=== PATIENT | male | born 1955 | race Caucasian/White ===

== ENCOUNTER 2022-10-31 13:00 | Outpatient (OUT) | payer MEDICARE, SELFPAY | END 2022-10-31 13:01 | disposition home or self-care (01) | LOC: PST 11-17 17:49 | PROVIDERS: PCP Family Medicine; Visit Provider Surgery | DX: Z01.818 Encounter for other preprocedural examination (principal); Z12.11 Encounter for screening for malignant neoplasm of colon ==

== ENCOUNTER 2022-11-08 08:31 | Day surgery (SDC) | payer MEDICARE, SELFPAY ==
[2022-11-08 08:48] VITALS: BP 138/72; PULSE 94; RESP 18; TEMP 36.2; O2SAT 97; BMI 26.9
[2022-11-08 08:56] LABS: Glucometer 139 mg/dL (74-106)
[2022-11-08] MEDS: LACTATED RINGER'S SOLUTION 1,000 ML 50 ML IV (09:15)
[2022-11-08 10:35] VITALS: BP 110/74; PULSE 73; RESP 18; TEMP 36.2; O2SAT 98
[2022-11-08 10:50] VITALS: BP 115/76; PULSE 77; RESP 18; O2SAT 95
[2022-11-08 11:14] VITALS: BP 125/78; PULSE 78; RESP 16; O2SAT 95
--- NOTE | 2022-11-08 11:17 | PM.GSPRC ---
Indications for Procedure: This patient is a 67-year-old male who presents for screening colonoscopy. The risks benefits options and potential complications of the procedure were discussed in detail with the patient and they agreed to proceed and consent was signed. Pre-op diagnosis: colon cancer screening Post-op diagnosis: other (normal exam) Procedure: colonoscopy Anesthesia: MAC Surgeon: Se Cuba Procedure Summary: The patient was brought to the endoscopy suite and placed in the left lateral decubitus position.? Under MAC the fiberoptic colonoscope was introduced into the rectum. This was gradually advanced through the colon to the cecum. The cecal landmarks were identified. The bowel prep was marginal making visualization of potentially small polyps quite difficult. Gradual withdrawal of the colonoscope was then undertaken. No vascular polypoid or mucosal lesions were noted throughout the entire length of the colon. The anal rectal canal was unremarkable. The colon was decompressed. Digital rectal exam was unremarkable. The procedure was ended and the patient was transferred to the recovery area in stable condition. Recommended follow-up colonoscopy in ten years. Estimated blood loss (mL): 0 Specimens: none Complications: No
== END 2022-11-08 11:15 | disposition home or self-care (01) ==
PROVIDERS: PCP Family Medicine; Visit Provider Surgery
PROC: (CPT G0121; principal; 2022-11-08 09:40)
DX: Z12.11 Encounter for screening for malignant neoplasm of colon (principal); Z79.82 Long term (current) use of aspirin; Z79.899 Other long term (current) drug therapy; Z79.84 Long term (current) use of oral hypoglycemic drugs; Z79.4 Long term (current) use of insulin; E11.22 Type 2 diabetes mellitus with diabetic chronic kidney disease; N18.9 Chronic kidney disease, unspecified; M48.061 Spinal stenosis, lumbar region without neurogenic claudication; E11.51 Type 2 diabetes mellitus with diabetic peripheral angiopathy without gangrene; Z98.1 Arthrodesis status; Z85.828 Personal history of other malignant neoplasm of skin
CPT/HCPCS: G0121; 36415; 82948; J2704

== ENCOUNTER 2023-01-19 08:37 | Outpatient (OUT) | payer MEDICARE, SELFPAY ==
[2023-01-19 09:22] LABS: Basophils Absolute Auto 0.1 10^3/uL (0.0-0.1); Basophils Percent Auto 0.6 % (0.2-2.0); Eosinophils Absolute Auto 0.1 10^3/uL (0.0-0.7); Eosinophils Percent Auto 1.4 % (0.9-7.0); Hematocrit 44.1 % (42.0-54.0); Hemoglobin 14.7 g/dL (14.0-18.0); Immature Granulocytes Abs Auto 0.02 10^3/uL (0.00-0.03); Immature Granulocytes Pct Auto 0.2 % (0.0-0.5); Lymphocytes Absolute Auto 2.6 10^3/uL (1.2-3.8); Lymphocytes Percent Auto 32.7 % (20.5-60.0); Mean Corpuscular HGB Conc 33.3 g/dL (29.9-35.2); Mean Corpuscular Hemoglobin 30.2 pg (25.9-34.0); Mean Corpuscular Volume 90.7 fL (80.0-94.0); Mean Platelet Volume 9.9 fL (9.5-13.5); Monocytes Absolute Auto 0.6 10^3/uL (0.3-0.8); Monocytes Percent Auto 7.2 % (1.7-12.0); Neutrophils Absolute Auto 4.6 10^3/uL (1.4-6.5); Neutrophils Percent Auto 57.9 % (43.0-75.0); Platelet Count 219 10^3/uL (150-450); Red Blood Count 4.86 10^6/uL (4.70-6.10); Red Cell Distribution Width 13.3 % (11.0-15.0)
[2023-01-19 09:27] LABS: Microalbumin Urine Random <1.3 mg/dL (<=30.0)
[2023-01-19 10:10] LABS: Alanine Aminotransferase 25 U/L (16-63); Albumin Globulin Ratio 1.2; Albumin Level 3.8 g/dL (3.4-5.0); Alkaline Phosphatase 104 U/L (46-116); Anion Gap 12.1; Aspartate Amino Transferase 15 U/L (15-37); Bilirubin Total 0.4 mg/dL (0.2-1.0); Calcium 9.1 mg/dL (8.5-10.1); Carbon Dioxide 29.6 mmol/L (21.0-32.0); Chloride 101 mmol/L (98-107); Chol HDL Ratio 2.8; Cholesterol 154 mg/dL (<=200); Estimated GFR (African America >60 (>=60); Estimated GFR (Non-African Ame >60 (>=60); Globulin 3.2 g/dL; Glucose 151 mg/dL (74-106); HDL Cholesterol 56 mg/dL (40-60); Potassium 3.7 mmol/L (3.5-5.1); Sodium 139 mmol/L (136-145); Thyroid Stimulating Hormone 1.751 uIU/mL (0.358-3.740); Triglycerides 277 mg/dL (<=150); VLDL CHOLESTEROL 55.4 mg/dL
[2023-01-19 11:35] LABS: Prostate Specific Antigen Dx 0.76 ng/mL (<=4.00)
== END 2023-01-19 08:38 | disposition home or self-care (01) ==
LOC: LAB 08:39
PROVIDERS: PCP Family Medicine; Visit Provider Family Medicine
DX: Z00.00 Encounter for general adult medical examination without abnormal findings (principal); E11.40 Type 2 diabetes mellitus with diabetic neuropathy, unspecified; Z79.4 Long term (current) use of insulin; Z12.5 Encounter for screening for malignant neoplasm of prostate
CPT/HCPCS: 36415; 80053; 80061; 82043; 84153; 84443; 85025

== ENCOUNTER 2024-04-09 07:42 | Outpatient (OUT) | payer MEDICARE, SELFPAY ==
[2024-04-09 08:12] LABS: Basophils Absolute Auto 0.1 10^3/uL (0.0-0.1); Basophils Percent Auto 0.6 % (0.2-2.0); Eosinophils Absolute Auto 0.3 10^3/uL (0.0-0.7); Eosinophils Percent Auto 3.2 % (0.9-7.0); Hematocrit 43.8 % (42.0-54.0); Immature Granulocytes Abs Auto 0.02 10^3/uL (0.00-0.03); Immature Granulocytes Pct Auto 0.2 % (0.0-0.5); Lymphocytes Absolute Auto 1.5 10^3/uL (1.2-3.8); Mean Corpuscular HGB Conc 34.2 g/dL (29.9-35.2); Mean Corpuscular Hemoglobin 30.8 pg (25.9-34.0); Mean Corpuscular Volume 89.9 fL (80.0-94.0); Mean Platelet Volume 9.7 fL (9.5-13.5); Monocytes Absolute Auto 0.6 10^3/uL (0.3-0.8); Monocytes Percent Auto 7.8 % (1.7-12.0); Neutrophils Absolute Auto 5.7 10^3/uL (1.4-6.5); Neutrophils Percent Auto 70.2 % (43.0-75.0); Platelet Count 205 10^3/uL (150-450); Red Blood Count 4.87 10^6/uL (4.70-6.10); Red Cell Distribution Width 12.9 % (11.0-15.0); White Blood Count 8.2 10^3/uL (4.0-11.0)
[2024-04-09 08:27] LABS: Microalbumin Urine Random <1.3 mg/dL (<=30.0)
[2024-04-09 08:30] LABS: Alanine Aminotransferase 24 U/L (16-63); Albumin Globulin Ratio 1.1; Albumin Level 3.5 g/dL (3.4-5.0); Alkaline Phosphatase 157 U/L (46-116); Anion Gap 10.9; Aspartate Amino Transferase 14 U/L (15-37); Bilirubin Direct 0.1 mg/dL (0.0-0.2); Bilirubin Total 0.5 mg/dL (0.2-1.0); Carbon Dioxide 29.4 mmol/L (21.0-32.0); Chloride 104 mmol/L (98-107); Chol HDL Ratio 2.4; Cholesterol 133 mg/dL (<=200); Estimated GFR (African America >60 (>=60 mL/min/1.73m^2); Estimated GFR (Non-African Ame >60 (>=60 mL/min/1.73m^2); Globulin 3.1 g/dL; Glucose 165 mg/dL (74-106); HDL Cholesterol 55 mg/dL (40-60); LDL Cholesterol Calculated 55.8 mg/dL; Potassium 4.3 mmol/L (3.5-5.1); Sodium 140 mmol/L (136-145); Total Protein 6.6 g/dL (6.4-8.2); Triglycerides 111 mg/dL (<=150); VLDL CHOLESTEROL 22.2 mg/dL
[2024-04-09 08:56] LABS: Prostate Specific Antigen Scrn 1.14 ng/mL (<=4.00)
== END 2024-04-09 07:43 | disposition home or self-care (01) ==
LOC: LAB 07:45
PROVIDERS: PCP Family Medicine; Visit Provider Family Medicine
DX: E78.5 Hyperlipidemia, unspecified (principal); I10 Essential (primary) hypertension; E11.65 Type 2 diabetes mellitus with hyperglycemia; Z79.4 Long term (current) use of insulin; Z79.899 Other long term (current) drug therapy; Z12.5 Encounter for screening for malignant neoplasm of prostate
CPT/HCPCS: 36415; 80048; 80061; 80076; 82043; 85025; G0103

== ENCOUNTER 2024-09-20 12:41 | Outpatient (OUT) | payer MEDICARE, SELFPAY ==
--- OUTSIDE RECORDS SUMMARY | 2023-06-26 09:30 | XMS_ITS ---
Author Organization [facility] Address [address] [place] [id number] Care Team Providers Care Winder Helper Name Role Phone Yin Titus [facility] [phone] REASON FOR VISIT CONCRETE CURER Comp Exam Encounters Encounter Location Date Provider Diagnosis [facility] [address] [place], [place] [id number] 06/26/2023 Yin Titus Plan Of Treatment No Information Progress Notes * CHARBELOrtiz PDOB:1955 (69 yo M)Acc No.[id number]:06/26/2023 Patient: Ortiz ZARATE Provider: Elia Titus DDS :1955 A ge:68 Y S ex:Male Date:06/26/2023 Address:[address] [place], [place] [id number] Subjective: * Chief Complaints: * 1 . CONCRETE CURER Comp Exam. * Medical History: Objective: * Vitals: Assessment: Plan: * Treatment: * Billing Information: * Visit Code: * Procedure Codes: * Electronic signature of Michelle Titus DDS on 09/20/2024 at 11:24 AM EDT Sign off status: Pending * Provider: Elia Titus DDS Date: 06/26/2023 Generated for Deepthi keller/Ariella/Jelaniitting on: 09/20/2024 11:24 AM EDT
--- OUTSIDE RECORDS SUMMARY | 2024-09-20 11:30 | XMS_ITS | Encounter Summary ---
Author Organization [facility] Address [address] [facility] [place] [address] Care Team Providers Care Fruit Trimmer Name Role Phone Bandar Muñiz MD Primary Care Provider [phone] Reason for Referral * (Routine) - Authorized Specialty Diagnoses / Procedures Referred By Contac t Referred To Contact Radiology Diagnoses Right leg pain Right leg swelling Procedures Vascular US lower extremity venous duplex right Bandar Muñiz MD [address] [place] [address] Phone: tel: fax: Referral ID Status Reason Start Date Expiration Date V isits Requested Visits Authorized [id number] Authorized 09/20/2024 03/19/2025 1 1 * Imaging (Routine) - Authorized Specialty Diagnoses / Procedures Referred By Contac t Referred To Contact Radiology Diagnoses Right leg pain Right leg swelling Peripheral vascular disease, unspecified (CMS/HCC) Procedures Vascular US lower extremity arterial duplex right with Doppler Bandar Muñiz MD [address] [place] [address] Phone: tel: fax: Referral ID Status Reason Start Date Expiration Date Visits Requested Visits Authorized [id number] Authorized Perform Procedure 09/20/2024 03/19/2025 1 1 Reason for Visit * Reason Comments Follow-up Right leg pain Encounter Details Date Type Department Care Team (Late st Contact Info) Description 09/20/2024 11:30 AM EDT Office Visit [facility] [address] [place] [id number] Bandar Muñiz MD [address] [place] [address] Right leg pain (Primary Dx); Right leg swelling; Peripheral vascular disease, unspecified (CMS/HCC) Social History Tobacco Use Types Packs/Day Years Used Date Smoking Tobacco: Former Cigarettes Smokeless Tobacco: Never Comments:Quit 5-10 years ago . Alcohol Use Standard Drinks/Week Comments Yes 0 (1 standard drink = 0.6 oz pure alcohol) Alcohol >6 drinks on occasion/less than monthly. Caffeine: 1-2 cups/day Humiliation, Afraid, Rape, and Kick questionnair e Answer Date Recorded Within the last year, have y ou been afraid of your partner or ex-partner? No 10/24/2022 Within the last year, have y ou been humiliated or emotionally abused in other ways by your partner or ex-partner? No Within the last year, have y ou been kicked, hit, slapped, or otherwise physically hurt by your partner or ex-partner? No 10/24/2022 Within the last year, have y ou been raped or forced to have any kind of sexual activity by your partner or ex-partner? No 10/24/2022 Social Connection and Isolation Panel [NHANES] A nswer Date Recorded In a typical week, how many times do you talk on the phone with family, friends, or neighbors? Three times a week 10/24/2022 How often do you get togethe r with friends or relatives? Once a week 10/24/2022 How often do you attend chur ch or rastafari services? Never 10/24/2022 Do you belong to any clubs o r organizations such as advent groups, unions, fraternal or athletic groups, or school groups? Yes 10/24/2022 How often do you attend meet ings of the clubs or organizations you belong to? Never 10/24/2022 Are you , , di vorced, , never , or living with a partner? 10/24/2022 AUDIT-C Answer Date Recorded Q1: How often do you have a drink containing alc ohol? Monthly or less 04/18/2024 Q2: How many drinks containi ng alcohol do you have on a typical day when you are drinking? 1 or 2 04/18/2024 Q3: How often do you have si x or more drinks on one occasion? Never 04/18/2024 Overall Financial Resource Strain (CARDIA) Answe r Date Recorded How hard is it for you to pa y for the very basics like food, housing, medical care, and heating? Not very hard 10/24/2022 PHQ-2 Answer Date Recorded Patient Health Questionnaire-2 Score 0 07/15/2024 Hunger Vital Sign Answer Date Recorded Within the past 12 months, y ou worried that your food would run out before you got the money to buy more. Never true 10/25/19 23 Within the past 12 months, t he food you bought just didn't last and you didn't have money to get more. Never true 10/24/2022 PRAPARE - Transportation Answer Date Re corded In the past 12 months, has l ack of transportation kept you from medical appointments or from getting medications? No 09/30 In the past 12 months, has l ack of transportation kept you from meetings, work, or from getting things needed for daily living? No 10/24/2022 Housing Stability Vital Sign Answer Emil e Recorded In the last 12 months, was t here a time when you were not able to pay the mortgage or rent on time? No 10/24/2022 In the last 12 months, how many places have you lived? 1 10/24/2022 In the last 12 months, was t here a time when you did not have a steady place to sleep or slept in a fci (including now)? No 10/24/2022 Sex and Gender Information Value Date Recorded Sex Assigned at Not on file Legal Sex Male 8:22 PM EDT Gender Identity Male 09/02/2023 10:37 AM EDT Sexual Orientation Not on file documented as of this encounter Last Filed Vital Signs Vital Sign Reading Time Taken Comments Blood Pressure 124/66 09/20/2024 11:39 AM EDT Pulse 89 09/20/2024 11:39 AM EDT Temperature 36.4 C (97.5 F) 09/20/2024 11:39 AM EDT Respiratory Rate 22 09/20/2024 11:39 AM EDT Oxygen Saturation 98% 09/20/2024 11:39 AM EDT Inhaled Oxygen Concentration - - Weight 87.1 kg (192 lb) 09/20/2024 11:39 AM EDT Height 177.8 cm (5' 10 ) 09/20/2024 11:39 AM EDT Body Mass Index 27.55 09/20/2024 11:39 AM EDT documented in this encounter Progress Notes * Bandar Muñiz MD - 09/20/2024 12:29 PM EDTAssociated Problem(s): Right leg pain Severe pain and redness of unknown etiology. Check US of veins to assess for DVT and US artery to assess for occlusion and ischemia. Check uric acid. Contacted radiology at [facility] and will send patient over for stat imaging. * Bandar Muñiz MD - 09/20/2024 12:28 PM EDTAssociated Problem(s): Peripheral vascular disease, unspecified (CMS/HCC) History of PVD and increased pain and redness. Check arterial doppler and need to resume aspirin daily. * Bandar Muñiz MD - 09/20/2024 11:30 AM EDT Images from the original note were not included. Subjective Patient ID: Cristian Barger is a 69 y.o. male who presents for Follow-up (Right leg pain). C/o right leg pain and redness for 2 weeks. Initially outside and doing yard work and shoveling. Next day severe pain in right leg. Pain in calf and down into foot. Noticed veins bulging in leg. Footand toes red and painful. Pain has persisted since. Severe pain with walking and hard to stand. Severe pain just to walk to mailbox and needs to stop. No swelling in leg. Skin red but not warm to touch. History of PAD and prior angioplasty on left leg around 2019. No longer following with vascular and not on aspirin or plavix. Review of Systems Constitutional: Negative for fatigue. Respiratory: Negative for cough, shortness of breath and wheezing. Cardiovascular: Negative for chest pain and palpitations. Gastrointestinal: Negative for abdominal pain, diarrhea, nausea and vomiting. Genitourinary: Negative for dysuria. Objective Physical Exam Constitutional: General: He is not in acute distress. Appearance: Normal appearance. HENT: Head: Normocephalic. Right Ear: Tympanic membrane and ear canal normal. Left Ear: Tympanic membrane and ear canal normal. Eyes: Extraocular Movements: Extraocular movements intact. Pupils: Pupils are equal, round, and reactive to light. Cardiovascular: Rate and Rhythm: Normal rate and regular rhythm. Heart sounds: No murmur heard. No friction rub. No gallop. Pulmonary: Breath sounds: Normal breath sounds. No wheezing, rhonchi or rales. Abdominal: General: Bowel sounds are normal. There is no distension. Palpations: Abdomen is soft. Tenderness: There is no abdominal tenderness. There is no guarding or rebound. Musculoskeletal: Left lower leg: No edema. Neurological: Mental Status: He is alert. Assessment/Plan Problem List Items Addressed This Visit Peripheral vascular disease, unspecified (CMS/HCC) History of PVD and increased pain and redness. Check arterial doppler and need to resume aspirin daily. Relevant Orders Vascular US lower extremity arterial duplex right with Doppler Right leg pain - Primary Severe pain and redness of unknown etiology. Check US of veins to assess for DVT and US artery to assess for occlusion and ischemia. Check uric acid. Contacted radiology at [facility] and will send patient over for stat imaging. Relevant Orders Vascular US lower extremity arterial duplex right with Doppler Vascular US lower extremity venous duplex right Uric acid Right leg swelling Relevant Orders Vascular US lower extremity arterial duplex right with Doppler Vascular US lower extremity venous duplex right Uric acid documented in this encounter Plan of Treatment Upcoming Encounters Date Type Department Care Team (Late st Contact Info) Description 09/24/2024 10:30 AM EDT Office Visit [facility] [address] [place] [address] Janina Samaniego MD [address] [place] [address] 10/15/2024 9:30 AM EDT Office Visit [facility] [address] [place] [address] Rukhsana Snow DO [address] [place] [address] 12/05/2024 10:00 AM EDT Office Visit [facility] [address] [place] [address] Bandar Muñiz MD [address] [place] [address] Scheduled Orders Name Type Priority Associated Diagnoses Orde r Schedule Vascular US lower extremity arterial duplex right with Doppler Vascular Ultrasound Routine Right leg pain Right leg swelling Peripheral vascular disease, unspecified (CMS/HCC) Expected: 09/20/2024 (Approximate), Expires: 09/20/2026 Vascular US lower extremity venous duplex right Imaging Routine Right leg pain Right leg swelling Expected: 09/20/2024, Expires: 09/20/2025 Uric acid Lab Routine Right leg pain Right leg swelling Expected: 09/20/2024 (Approximate), Expires: 09/20/2025 documented as of this encounter Visit Diagnoses Diagnosis Right leg pain- Primary Pain in soft tissues of limb Right leg swelling Peripheral vascular disease, unspecified (CMS/HCC) Peripheral vascular disease, unspecified documented in this encounter Additional Health Concerns Assessment Noted Time PHQ-9 Depression Total Score: 0 06/06/19 25 10:00 AM EST documented as of this encounter Care Teams Fruit Trimmer Relationship Specialty Start Date End Date Bandar Muñiz MD [address] [place] [address] PCP - General Family Medicine 05/29/23 documented as of this encounter
--- OUTSIDE RECORDS SUMMARY | 2024-09-20 11:33 | XMS_ITS ---
Author Name Auto Generated Organization [facility] Care Team Providers Care Shot Fireman Name Role Phone ZOIE RASHID Attending Unavailable DONAVAN PALACIO Attending Unavailable PHI FIGUEROA Attending Unavailable SAUL SNIDER Attending Unavailable SAUL SNIDER Attending Unavailable DONAVAN PALACIO Attending Unavailable PHI FIGUEROA Attending Unavailable DONAVAN PALACIO Attending Unavailable PHI FIGUEROA Attending Unavailable PHI FIGUEROA Attending Unavailable SAUL SNIDER Attending Unavailable DONAVAN PALACIO Referring Unavailable CHACHA DUNCAN Attending Unavailable PHI FIGUEROA Attending Unavailable PROBLEMS No Problem Records Found PROCEDURES No Procedure Records Found RESULTS No Result Records Found ALLERGIES No Allergies Records Found ENCOUNTERS ADMIT/DISCHARGE ACCOUNT NUMBER ADMITTING ENCOUNTER CLASS LOCATION SOURCE 09/20/2024/ 5 [id number] Ambulatory Building:[facility] 07/15/2024/ 5 [id number] Ambulatory Building[facility] 06/06/2024/ 5 [id number] Ambulatory Building:[facility] 05/22/2024/ 5 [id number] Ambulatory Building:[facility] 05/08/2024/ 5 [id number] Ambulatory Building:[facility] 04/19/2024/ 4 [id number] Ambulatory Building:[facility] 04/18/2024/ 4 [id number] Ambulatory Building:[facility] 04/16/2024/ 4 [id number] Ambulatory Building:[facility] 04/03/2024/ 4 [id number] Ambulatory Building:[facility] 03/06/2024/ 4 [id number] Ambulatory Building:[facility] 01/26/2024/ 4 [id number] Ambulatory Building:[facility] 12/29/2023/ 4 [id number] Ambulatory Building:[facility] 10/05/2023/ 4 [id number] Ambulatory Building:[facility] PAYERS ENCOUNTER GUARANTOR PAYER SUBSCRIBER SOURCE 09/20/2024 JAMILA FERNANDEZ: [address] [address]Szr: (HP) Primary Insurance:AETNA MEDICARE ADVANTAGEPolicy Number: [id number] Date:2022-08-29 JAMILA VILAB: [id number] [address] [address] [facility] EPIC 07/15/2024 JAMILA VILAB: [address] [address]Rrz: (HP) Primary Insurance:AETNA MEDICARE ADVANTAGEPolicy Number: [id number] Date:2022-08-29 JAMILA VILAB: [id number] [address] [address] [facility] EPIC 06/06/2024 JAMILA VILAB: [address] [address]Nqa: (HP) Primary Insurance:AETNA MEDICARE ADVANTAGEPolicy Number: [id number] Date:2022-08-29 JAMILA VILAB: [id number] [address] [address] [facility] EPIC 05/22/2024 JAMILA VILAB: [address] [address]Sqx: (HP) Primary Insurance:AETNA MEDICARE ADVANTAGEPolicy Number: [id number] Date:2022-08-29 JAMILA NOLENDOB: [id number] [address] [place] [address] [facility] EPIC 05/08/2024 JAMILA VILAB: [address] [address]Kix: (HP) Primary Insurance:AETNA MEDICARE ADVANTAGEPolicy Number: [id number] Date:2022-08-29 JAMILA NOLENDOB: [id number] [address] [place] [address] [facility] EPIC 04/19/2024 JAMILA NOLENDOB: [address] [place] [address]Gik: (HP) Primary Insurance:AETNA MEDICARE ADVANTAGEPolicy Number: [id number] Date:2022-08-29 JAMILA NOLENDOB: [id number] [address] [place] [address] [facility] EPIC 04/18/2024 JAMILA Ivy RAYDOB: [address] [place] [address]Gtj: (HP) Primary Insurance:AETNA MEDICARE ADVANTAGEPolicy Number: [id number] Date:2022-08-29 JAMILA NOLENDOB: [id number] [address] [place] [address] [facility] EPIC 04/16/2024 JAMILA NOLENDOB: [address] [place] [address]Fcf: (HP) Primary Insurance:AETNA MEDICARE ADVANTAGEPolicy Number: [id number] Date:2022-08-29 JAMILA NOLENDOB: [id number] [address] [address] [facility] EPIC 04/03/2024 JAMILA Ivy RAYDOB: [address] [place] [address]Ien: (HP) Primary Insurance:AETNA MEDICARE ADVANTAGEPolicy Number: [id number] Date:2022-08-29 JAMILA NOLENDOB: [id number] [address] [place] [address] [facility] EPIC 03/06/2024 JAMILA NOLENDOB: [address] [address]Skz: (HP) Primary Insurance:AETNA MEDICARE ADVANTAGEPolicy Number: [id number] Date:2022-08-29 JAMILA VILAB: [id number] [address] [address] [facility] EPIC 01/26/2024 JAMILA NOLENB: [address] [address]Zio: (HP) Primary Insurance:AETNA MEDICARE ADVANTAGEPolicy Number: [id number] Date:2022-08-29 JAMILA NOLENB: [id number] [address] [address] [facility] EPIC 12/29/2023 JAMILA NOLENB: [address] [address]Dhp: (HP) Primary Insurance:AETNA MEDICARE ADVANTAGEPolicy Number: [id number] Date:2022-08-29 JAMILA NOLENB: [id number] [address] [address] [facility] EPIC 10/05/2023 JAMILA NOLENB: [address] [address]Vaa: (HP) Primary Insurance:AETNA MEDICARE ADVANTAGEPolicy Number: [id number] Date:2022-08-29 JAMILA Cata TAMANNAB: [id number] [address] [address] [facility] EPIC
--- OUTSIDE RECORDS SUMMARY | 2024-09-20 12:45 | XMS_ITS | Clinical Summary ---
Author Organization [facility] Address [address] [place] [address] Phone Care Team Providers Care Draw Machine Operator Name Role Phone Unavailable Primary Care Provider Unavailabl e Social History Tobacco Use Types Packs/Day Years Used Date Smoking Tobacco: Never Assessed Sex and Gender Information Value Date Recorded Sex Assigned at Not on file Legal Sex Male 7:34 PM EST Gender Identity Not on file Sexual Orientation Not on file Plan of Treatment Not on file
--- OUTSIDE RECORDS SUMMARY | 2024-09-20 12:46 | XMS_ITS | Clinical Summary ---
Author Organization [facility] Healthcare Address [address] [place] [address] Care Team Providers Care Cook Chef Name Role Phone Bandar Muñiz MD Primary Care Provider Allergies Active Allergy Reactions Criticality Noted Date Comments Penicillin G 10/25/2022 Medications Lancets (OneTouch Delica Plus Zataam17C) misc use 1 LANCET to TEST FASTING BLOOD SUGAR three times a day 023 Active OneTouch Verio test strip use 1 TEST STRIP to TEST FASTING BLOOD SUGAR twice a day 023 Active Continuous Blood Gluc Paid Search Marketing Analyst (FreeStyle Daisy 3 Sugar Run) deviceIndications: Type 2 diabetes mellitus with diabetic neuropathy, with long-term current use of insulin (CMS/HCC) 1 Device See administration instructions 1 each 024 Active Additional Information Patient not taking.Reported on 07/15/2024 Continuous Blood Gluc Sensor (FreeStyle Daisy 3 Sensor) miscIndications:Ty pe 2 diabetes mellitus with diabetic neuropathy, with long-term current use of insulin (CMS/HCC) Inject 1 Device under the skin every 14 (fourteen) days 6 each 3 024 Active lisinopril-hydroCH LOROthiazide 20-12.5 MG tabletIndications: Essential hypertension, benign (CMS/HCC) Take 1 tablet by mouth Daily 100 tablet 3 024 Active atorvastatin (Lipitor) 40 MG tabletIndications: Dyslipidemia (CMS/HCC) TAKE 1 TABLET BY MOUTH EVERYDAY AT BEDTIME 90 tablet 3 024 Active metFORMIN XR (Glucophage-XR) 500 MG 24 hr tabletIndications: Type 2 diabetes mellitus with diabetic neuropathy, with long-term current use of insulin ([facility]) TAKE 2 TABLETS BY MOUTH IN THE MORNING AND 1 TABLET IN THE EVENING 270 tablet 3 Active dapagliflozin (Farxiga) 10 MGIndications:Type 2 diabetes mellitus with Charcot's joint arthropathy (CMS/HCC) TAKE 1 TABLET BY MOUTH EVERY DAY 30 tablet 3 Active insulin pen needle (BD Pen Needle Aditi 2nd Gen) 32G x 4 mm miscIndications:Ty pe 2 diabetes mellitus with 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, with long-term current use of insulin ([facility]) Use as instructed bid injections 200 each 3 025 07/15 Active insulin lispro protamine-insulin lispro (HumaLOG MIX 50/50 KWIKPEN) (50-50) 100 UNIT/ML injectionIndicatio ns:Type 2 diabetes mellitus with Charcot's joint arthropathy (CMS/[facility]) 22 units breakfast and dinner 15 mL 3 Active gabapentin (Neurontin) 600 MG tabletIndications: Type 2 diabetes mellitus with diabetic neuropathy, without long-term current use of insulin ([facility]) TAKE 1 TABLET BY MOUTH EVERY MORNING, EVERY EVENING, AND BEFORE BEDTIME 90 tablet 2 Active gabapentin (Neurontin) 600 MG tabletIndications: Type 2 diabetes mellitus with diabetic neuropathy, without long-term current use of insulin ([facility]/HCC) Take 1 tablet (600 mg) by mouth in the morning and 1 tablet (600 mg) in the evening and 1 tablet (600 mg) before bedtime. 90 tablet 2 025 09/19 Discontinued Active Problems Problem Noted Date Diagnosed Date Right leg pain 09/20/2024 Assessment & Plan (09/20/2024 12:29 PM EDT): Severe pain and redness of unknown etiology. Check US of veins to assess for DVT and US artery to assess for occlusion and ischemia. Check uric acid. Contacted radiology at [facility] and will send patient over for stat imaging. Right leg swelling 09/20/2024 Medicare annual wellness visit, subsequent 06/06 Assessment & Plan (06/06/2024 10:48 AM EST): Reviewed labs. Discussed proper diet and regular aerobic exercise. Need aerobic exercise 5-6 days a week for 30 minutes at a time. Smaller portions and limit total calories. Colonoscopy every 10 years. Tetanus every 10 years. Advised not to smoke. Discussed daily Aspirin therapy. 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 If abnormal could try injection. Encounter for long-term current use of medicatio n 03/06/2024 Screening PSA (prostate specific antigen) 2023 Essential hypertension, benign 09/18/2023 Assessment & Plan (03/06/2024 9:58 AM EST): BP controlled and monitor PRN. Assessment & Plan (09/18/2023 11:05 AM EDT): BP controlled and monitor PRN. Dyslipidemia 09/18/2023 Leg edema 09/18/2023 Assessment & Plan (03/06/2024 9:59 AM EST): Edema stable and continue medication. Elevate legs PRN. Assessment & Plan (09/18/2023 11:05 AM EDT): Edema stable and continue medication. Elevate legs PRN. Left foot pain 09/18/2023 Peripheral vascular disease, unspecified 024 Assessment & Plan (09/20/2024 12:28 PM EDT): History of PVD and increased pain and redness. Check arterial doppler and need to resume aspirin daily. Assessment & Plan (03/06/2024 10:00 AM EST): Monitor. Primary osteoarthritis of left elbow 09/18/2023 Superficial phlebitis and th rombophlebitis of left lower extremity 09/18/2023 Type 2 diabetes mellitus wit h hyperglycemia, with long-term current use of insulin 09/18/2023 Assessment & Plan (03/06/2024 9:59 AM EST): BS controlled and follow with endo. History of nonmelanoma skin cancer 10/25/2022 Melanocytic nevi of trunk 10/25/2022 Primary osteoarthritis of right hip 10/25/2022 Degenerative lumbar spinal stenosis 10/25/2022 Assessment & Plan (03/06/2024 9:58 AM EST): Pain stable and use OTC PRN. Increase activity and walk regularly. Assessment & Plan (09/18/2023 11:05 AM EDT): Pain stable and use OTC PRN. Increase activity and walk regularly. Type 2 diabetes mellitus with Charcot's joint ar thropathy 10/25/2022 Assessment & Plan (07/15/2024 12:58 PM EDT): During the appointment today all pertinent labs, imaging, health maintenance, and glucose readings were reviewed. Encouraged to check blood glucose throughout the day with some fasting and some PP readings. They are to bring their glucose meter/cgm in to all appointments. All of the patients questions, treatment options, and current care plan and goals were discussed. A copy of this along with pertinent instructions were given to the patient at the end of the appointment. The patient voices understanding of all of this and is to call in between appointments if they have any problems or questions. Ortiz Barger blood sugars are worsening. , The patient is wearing their cgm on a daily basis and making decisions in regards to adjusting insulin daily as well for at least the last 60 days , Discussed dietary changes at length. Encouraged to limit simple carbs and focus more on healthy protein/fat with all meals and snacks. They should also avoid any sugary drinks. , Instructed on the importance of taking insulin before eating. If it has been more than 30-45 min since eating they should not give the meal dose but should just give a correction insulin dose. , Instructions given today include: Insulin instructions and Dietary education. If he is going to eat between insulin shots it needs to mainly be on protein. Will increase insulin a little. Assessment & Plan (04/18/2024 12:07 PM EST): During the appointment today all pertinent labs, imaging, health maintenance, and glucose readings were reviewed. Encouraged to check blood glucose throughout the day with some fasting and some PP readings. They are to bring their glucose meter/cgm in to all appointments. All of the patients questions, treatment options, and current care plan and goals were discussed. A copy of this along with pertinent instructions were given to the patient at the end of the appointment. The patient voices understanding of all of this and is to call in between appointments if they have any problems or questions. Ortiz Barger blood sugars are worsening. , The patient is wearing their cgm on a daily basis and making decisions in regards to adjusting insulin daily as well for at least the last 60 days , Instructed on the importance of taking insulin before eating. If it has been more than 30-45 min since eating they should not give the meal dose but should just give a correction insulin dose. , Instructions given today include: Insulin instructions and Dietary education. Will stop lantus and use premixed insulin. I don't feel that his pancreas is making enough insulin. He is to stay on a fairly fixed schedule for breakfast and dinner with using the premixed insulin. Assessment & Plan (01/02/2024 12:27 PM EDT): During the appointment today all pertinent labs, imaging, health maintenance, and glucose readings were reviewed. Encouraged to check blood glucose throughout the day with some fasting and some PP readings. They are to bring their glucose meter/cgm in to all appointments. All of the patients questions, treatment options, and current care plan and goals were discussed. A copy of this along with pertinent instructions were given to the patient at the end of the appointment. The patient voices understanding of all of this and is to call in between appointments if they have any problems or questions. Ortiz Barger blood sugars are worsening. , The patient is wearing their cgm on a daily basis and making decisions in regards to adjusting insulin daily as well for at least the last 60 days , Discussed dietary changes at length. Encouraged to limit simple carbs and focus more on healthy protein/fat with all meals and snacks. They should also avoid any sugary drinks. , Instructions given today include: Insulin instructions and Dietary education. I don't think he makes enough insulin for his meals. He wishes to still hold off on prandial insulin. Will stay with current therapy. He needs to keep his carbs < 30-40 grams per meal to prevent bg spikes. If he continues to spike, will need to add prandial insulin. Type 2 diabetes mellitus wit h diabetic neuropathy, unspecified 10/25/2022 Assessment & Plan (03/06/2024 9:59 AM EST): Mild pain but tolerable with neurontin and continue. Assessment & Plan (09/18/2023 11:06 AM EDT): Mild pain but tolerable with neurontin and continue. Assessment & Plan (08/29/2023 2:07 PM EDT): During the appointment today all pertinent labs, imaging, health maintenance, and glucose readings were reviewed. Encouraged to check blood glucose throughout the day with some fasting and some PP readings. They are to bring their glucose meter/cgm in to all appointments. All of the patients questions, treatment options, and current care plan and goals were discussed. A copy of this along with pertinent instructions were given to the patient at the end of the appointment. The patient voices understanding of all of this and is to call in between appointments if they have any problems or questions. Ortiz Cata Barger is making improvements and encouraged on this. , Will stay on current medications. , The patient is wearing their cgm on a daily basis and making decisions in regards to adjusting insulin daily as well for at least the last 60 days. He is to pay more attention to when his bg spikes and what he is eating. Make sure he is eating protein with all meals/snacks. Assessment & Plan (05/29/2023 3:21 PM EST): During the appointment today all pertinent labs, imaging, health maintenance, and glucose readings were reviewed. Encouraged to check blood glucose throughout the day with some fasting and some PP readings. They are to bring their glucose meter/cgm in to all appointments. All of the patients questions, treatment options, and current care plan and goals were discussed. A copy of this along with pertinent instructions were given to the patient at the end of the appointment. The patient voices understanding of all of this and is to call in between appointments if they have any problems or questions. Ortiz Barger is struggling to gain control of their diabetes. I am very concerned for diabetes related complications. , Discussed dietary changes at length. Encouraged to limit simple carbs and focus more on healthy protein/fat with all meals and snacks. They should also avoid any sugary drinks. , Instructions given today include: Insulin instructions and Dietary education. He is going to work on improving his diet, limiting eating out, and will put him on a daisy 3 to help with this as well. If this is not helpful will have to add another medication and consider prandial insulin. Assessment & Plan (02/24/2023 11:19 AM EDT): During the appointment today all pertinent labs, imaging, health maintenance, and glucose readings were reviewed. Encouraged to check blood glucose throughout the day with some fasting and some PP readings. They are to bring their glucose meter/cgm in to all appointments. All of the patients questions, treatment options, and current care plan and goals were discussed. A copy of this along with pertinent instructions were given to the patient at the end of the appointment. The patient voices understanding of all of this and is to call in between appointments if they have any problems or questions. Ortiz Barger is struggling to gain control of their diabetes. I am very concerned for diabetes related complications. , Will stay on current medications. , Discussed dietary changes at length. Encouraged to limit simple carbs and focus more on healthy protein/fat with all meals and snacks. They should also avoid any sugary drinks. , Instructions given today include: Dietary education. Will work on improving his diet and checking bg more throughout the day. If numbers are not improving will consider cgm. He is hesitant about the cgm. 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 Ear irrigated with water and cerumen removed with speculum. Canal clear after procedure. Use debrox or drops of baby oil to prevent build up of wax in future. Do not use q-tips inside ear. 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 01/06/2021 02/24/2023 Other acquired deformities of right foot 01/06/2021 03/06/2024 Deformity of right foot 01/06/202109/2023 Ulcer of foot due to type 2 diabetes mellitus 12/30/19 21 09/18/2023 Diabetic neuropathic arthropathy 04/14/2020 02/24/2023 Diabetic peripheral neuropat hy associated with type 2 diabetes mellitus 10/23/2017 02/24/2023 Encounters Date Type Department Care Team Description 09/20/2024 11:30 AM EDT Office Visit [facility] [address] [place] [id number] Bandar Muñiz MD Right leg pain (Primary Dx); Right leg swelling; Peripheral vascular disease, unspecified (CMS/HCC) 09/20/2024 Bamboo flowsheet [facility] [address] [place] [phone] Bandar Muñiz MD 09/19/2024 Refill [facility] [address] [place] [phone] Bandar Muñiz MD Type 2 diabetes mellitus with diabetic neuropathy, without long-term current use of insulin (CMS/[facility]) 09/12/2024 Abstract [facility] [address] [place] [address] Rukhsana Snow DO 09/09/2024 Abstract [facility] [address] [place] [address] Bandar Muñiz MD 07/25/2024 Refill [facility] [address] [place] [phone] Danni Bishop LPN Type 2 diabetes mellitus with Charcot's joint arthropathy ([facility]/HCC) 07/15/2024 10:30 AM EDT Office Visit [facility] [address] [place] [address] Rukhsana Snow, Type 2 diabetes mellitus with Charcot's joint arthropathy ([facility]/HCC); Type 2 diabetes mellitus with diabetic neuropathy, with long-term current use of insulin ([facility]); Type 2 diabetes mellitus with 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, with long-term current use of insulin ([facility]); Type 2 diabetes mellitus with other circulatory complications ([facility]); Type 2 diabetes mellitus with hyperglycemia, with long-term current use of insulin ([facility]) 07/15/2024 Travel from Last 3 Months Immunizations Immunization Administration Dates Next Due Influenza, injectable, quadrivalent, preservativ e free 04/03/2019 Pneumococcal Conjugate PCV 13 02/11/2019 Family History Medical History Relation Name Comments No Known Problems Brother 1 Cancer Brother 2 blood clots Brother 2 Diabetes Father Heart disease Father Hypertension Father Kidney disease Father Breast cancer Mother Diabetes Mother No Known Problems Sister Melanoma Neg Hx Relation Name Status Comments Brother 1 Alive Brother 2 Father Mother Sister Alive Son (2) Alive Social History Tobacco Use Types Packs/Day Years Used Date Smoking Tobacco: Former Cigarettes Smokeless Tobacco: Never Tobacco Cessation:Counseling Given: Not Answered Comments:Quit 5-10 years ago. Alcohol Use Standard Drinks/Week Comments Yes 0 [...] week 10/24/2022 How often do you attend [facility] or [employer] services? Never 10/24/2022 Do you belong to any clubs o r organizations such as sikhism groups, unions, fraternal or athletic groups, or [...] the money to buy more. Never true 06/26/20 23 Within the past 12 months, t [...] place to sleep or slept in a correction (including now)? No 10/24/2022 Sex and Gender Information Value Date Recorded Sex Assigned at Not on file Legal Sex Male 8:22 PM EDT Gender Identity Male 09/02/2023 10:37 AM EDT Sexual Orientation Not on file Last Filed Vital Signs Vital Sign Reading [...] Mass Index 27.55 09/20/2024 11:39 AM EDT Plan of Treatment Upcoming Encounters Date Type Department Care Team (Late st Contact Info) Description 09/24/2024 10:30 AM EDT Office Visit [facility] [address] [place] [address] Janina Samaniego MD [address] [place] [address] 10/15/2024 9:30 AM EDT Office Visit [facility] [address] [place] [phone] Gwendolyn Rukhsana M [address] [place] [address] 12/05/2024 10:00 AM EDT Office Visit [facility] [address] [place] [phone] Bandar Muñiz MD [address] [place] [address] Health Maintenance Due Date Last Done Comments CT Colonography 1953 FIT-DNA 1953 FIT 1953 FOBT 1955 Sigmoidoscopy 1955 Pneumococcal Vaccine: 65+ Ye ars (2 of 2 - PPSV23) 04/08/2019 02/11/2019 Influenza Vaccine (Season Ended) 2024 04/03/20 19 Diabetes: Hemoglobin A1C 01/15/202507/15/2 025, 04/18/2024, 12/29/2023, Additional history exists Diabetes: Retinopathy Screening 03/15/2025 03/15/2024, 03/15/2024, 05/09/2022 Diabetes: Urine Protein Screening 04/09/2025 04/09/2024, 01/19/2023, 01/06/2021 Medicare Annual Wellness (AWV) 06/06/2025 06/06/2024 Colonoscopy 11/08/2032 11/08/2022 Colorectal Cancer Screening 11/08/2032 Procedures Procedure Name Priority Date/Time Associated Diagnosis Comments POCT GLYCOSYLATED HEMOGLOBIN (HGB A1C) Routine 07/15/2024 10:55 AM EDT Type 2 diabetes mellitus with 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, with long-term current use of insulin ([facility]) DIABETIC RETINOPATHY SCREENING - OU - BOTH EYES Routine 03/15/2024 11:45 AM EST MICROALBUMIN CREATININE RATIO, U Routine 01/06/2021 from Last 3 Months or Most Recently Relevant to Health Maintenance Results * POCT glycosylated hemoglobin (Hb A1C) docked device (07/15/2024 10:55 AM EDT) Hemoglobin A1C 7.9 Blood Venous blood specimen / Unknown 07/15/2024 10:55 AM EDT Rukhsana Snow DO POINT OF CARE TEST ENTER/E DIT ORDERABLES Final Result * (ABNORMAL) Diabetic Retinopathy Screening - OU - Both Eyes (03/15/2024 11:45 AM EST) Anatomical Region Laterality Modality Head Other Rukhsana Snow DO OPHTH PHOTOGRAPHY Final Re sult * MICROALBUMIN CREATININE RATIO, U (01/06/2021) MALB 2.3 <=30.0 [facility] URINE CREAT 249.04 20.00 - 300.00 [facility] MALB CR RATIO 9.2 0.0 - 29.9 [facility] MALB CR RATIO RANGE SEE BELOW [facility] Comment:NO MICROALBUMINURIA 0-29 MG/G CLINICAL MICROALBUMINURIA 30-300 MG/G MACROALBUMINURIA >300 MG/G PERFORMING LAB: see note [facility] Comment:1 - [facility] - [address] [address] ,[id number] 01/06/2021 Rukhsana Snow DO [facility] Final Resu lt [facility] from Last 3 Months or Most Recently Relevant to Health Maintenance Insurance [employer] MED[employer]ARE [employer]VANTAGE Care Teams Cook Chef Relationship Specialty Start Date End Date Bandar Muñiz MD [address] [place] [phone] PCP - General Family Medicine 05/29/23
--- OUTSIDE RECORDS SUMMARY | 2024-09-20 12:46 | XMS_ITS | Encounter Summary ---
Author Organization [facility] Address [address] [place] [address] Care Team Providers Care Sheet Metal Engineer Name Role Phone Bandar Muñiz MD Primary Care Provider [phone] Encounter Details Date Type Department Care Team (Late st Contact Info) Description 03/15/2024 Orders Only [facility] [address] [facility] 230 [place] [address] Rukhsana Snow, DO [address] [facility] 230 [place] [address] Social History Tobacco Use Types Packs/Day Years [...] often do you attend chur ch or quaker services? Never 10/24/2022 Do you belong to any clubs o r organizations such as worship groups, unions, fraternal or athletic groups, or school groups? Yes 10/24/2022 How often do you attend meet ings of the clubs or organizations you belong to? Never 10/24/2022 Are you , , di vorced, , never , or living with a partner? 10/24/2022 AUDIT-C Answer Date Recorded Q1: How often do you have a drink containing alc ohol? Monthly or less 10/24/2022 Q2: How many drinks containi ng alcohol do you have on a typical day when you are drinking? 1 or 2 10/24/2022 Q3: How often do you have si x or more drinks on one occasion? Never 10/24/2022 Overall Financial Resource Strain (CARDIA) Answe r Date Recorded How hard is it for you to pa y for the very basics like food, housing, medical care, and heating? Not very hard 10/24/2022 PHQ-2 Answer Date Recorded Patient Health Questionnaire-2 Score 0 10/25/2022 Hunger Vital Sign Answer Date Recorded Within [...] on file documented as of this encounter Plan of Treatment Upcoming Encounters Date Type Department Care Team (Late st Contact Info) Description 09/24/2024 10:30 AM EDT Office Visit [facility] [address] [place] [address] Janina Samaniego MD [address] [place] [address] 10/15/2024 9:30 AM EDT Office Visit [facility] [address] [place] [address] Rukhsana Snow DO [address] [place] [address] 12/05/2024 10:00 AM EDT Office Visit [facility] [address] [place] [address] Bandar Muñiz MD [address] [place] [address] documented as of this encounter Procedures Procedure Name Priority Date/Time Associated Diagnosis Comments DIABETIC RETINOPATHY SCREENING - OU - BOTH EYES Routine 03/15/2024 11:45 AM EST documented in this encounter Results * (ABNORMAL) Diabetic Retinopathy Screening - OU - Both Eyes (03/15/2024 11:45 AM EST) Anatomical Region Laterality Modality Head Other us Rukhsana Snow DO OPHTH PHOTOGRAPHY Final Re sult documented in this encounter Visit Diagnoses Not on filedocumented in this encounter Care Teams Sheet Metal Engineer Relationship Specialty Start Date End Date Bandar Muñiz MD [address] [place] [address] PCP - General Family Medicine 05/29/23 documented as of this encounter
--- OUTSIDE RECORDS SUMMARY | 2024-09-20 12:46 | XMS_ITS | Patient Health Record ---
Author Organization [facility] Address [address] [place], [place] [address], [place] [id number] Care Team Providers Care Cloth Stretcher Name Role Phone Yin Titus Unavailable [phone] Reason For Referral No Information Plan Of Treatment No Information Insurance Providers Payer Name Payer Address Payer Phone Subscriber Number Group Number Insured Name Patient Relationship to Insured Coverage Start Date Coverage End Date A[employer] Medicare [address] [address] [place] [address] [id number] [place] Ortiz Barger Self - patient is the insured 4 [employer]etna [facility] [address] [place] [address] [phone] [id number] Ortiz Izaguirre Self - patient is the insured 4
--- OUTSIDE RECORDS SUMMARY | 2024-09-20 12:46 | XMS_ITS | Encounter Summary ---
Author Organization [facility] Address [address] [place] [address] Care Team Providers Care Glazier Stained Glass Name Role Phone Bandar Muñiz MD Primary Care Provider [phone] Bandar Muñiz MD Primary Care Provider [phone] Encounter Details Date Type Department Care Team (Late st Contact Info) Description 02/01/2023 Abstract [facility] [address] [facility] [address] [place] [address] Janina Samaniego MD [address] [facility] [address] [place] [address] Social History Tobacco Use Types Packs/Day Years [...] often do you attend chur ch or sabianist services? Never 10/24/2022 Do you belong to any clubs o r organizations such as spiritism groups, unions, fraternal or athletic groups, or [...] place to sleep or slept in a skilled nursing (including now)? No 10/24/2022 Sex and Gender Information Value Date Recorded Sex Assigned at Not on file Legal Sex Male 8:22 PM EDT Gender Identity Male 09/02/2023 10:37 AM EDT Sexual Orientation Not on file COVID-19 Exposure Response Date Recorded In the last 10 days, have yo u been in contact with someone who was confirmed or suspected to have Coronavirus/COVID-19? No / Unsure 01/31/2023 7:06 PM EDT documented as of this encounter Plan of Treatment Upcoming Encounters Date Type Department Care Team (Late st Contact Info) Description 09/24/2024 10:30 AM EDT Office Visit [facility] [address] [place] [address] Janina Samaniego MD [address] [place] [address] 10/15/2024 9:30 AM EDT Office Visit [facility] [address] [place] [address] Rukhsana Snow DO [address] [place] [address] 12/05/2024 10:00 AM EDT Office Visit [facility] [address] [place] [address] Bandar Muñiz MD [address] [place] [address] documented as of this encounter Visit Diagnoses Not on filedocumented in this encounter Care Teams Glazier Stained Glass Relationship Specialty Start Date End Date Bandar Muñiz MD PCP - General Family Medicine 10/21/22 05/28/23 Bandar Muñiz MD [address] [place] [address] PCP - General Family Medicine 05/29/23 documented as of this encounter
--- OUTSIDE RECORDS SUMMARY | 2024-09-20 12:46 | XMS_ITS | Encounter Summary ---
Author Organization [facility] Address [address] [place] [address] Care Team Providers Care Brick And Tile Making Machine Operator Name Role Phone Bandar Muñiz MD Primary Care Provider [phone] Encounter Details Date Type Department Care Team (Late st Contact Info) Description 09/20/2024 Bamboo flowsheet [facility] [address] [place] [address] Bandar Muñiz MD [address] [place] [address] Social History Tobacco Use Types Packs/Day Years [...] any clubs o r organizations such as pentecostal groups, unions, fraternal or athletic groups, or [...] place to sleep or slept in a nursing home (including now)? No 10/24/2022 Sex and Gender [...] [address] [place] [address] Janina Samaniego MD [address] [place] [address] 10/15/2024 9:30 AM EDT Office Visit [facility] [address] [place] [address] Rukhsana Snow DO [address] [place] [address] 12/05/2024 10:00 AM EDT [facility] [address] [place] [address] Bandar Muñiz MD [address] [place] [address] documented as of this encounter Visit Diagnoses Not on filedocumented in this encounter Additional Health Concerns Assessment Noted Time PHQ-9 Depression Total Score: 0 06/06/19 25 10:00 AM EST documented as of this encounter Care Teams Brick And Tile Making Machine Operator Relationship Specialty Start Date End Date Bandar Muñiz MD [address] [place] [address] PCP - General Family Medicine 05/29/23 documented as of this encounter
--- OUTSIDE RECORDS SUMMARY | 2024-09-20 12:46 | XMS_ITS | Encounter Summary ---
Author Organization [facility] Address [address] [place] [address] Care Team Providers Care Radiation Control Worker Name Role Phone Bandar Muñiz MD Primary Care Provider [phone] Reason for Visit * Reason Comments Med Refill Encounter Details Date Type Department Care Team (Late st Contact Info) Description 09/19/2024 [facility] [address] [place] [address] Bandar Muñiz MD [address] [place] [address] Type 2 diabetes mellitus with diabetic neuropathy, without long-term current use of insulin ([facility]) Social History Tobacco Use Types Packs/Day Years [...] often do you attend chur ch or yazidism services? Never 10/24/2022 Do you belong to any clubs o r organizations such as jew groups, unions, fraternal or athletic groups, or [...] [address] [place] [address] Janina Samaniego MD [address] [place] [address] 10/15/2024 9:30 AM EDT Office Visit [facility] [address] [place] [address] Rukhsana Snow DO [address] [place] [address] 12/05/2024 10:00 AM EDT Office Visit [facility] [address] [place] [address] Bandar Muñiz MD [address] [place] [address] documented as of this encounter Visit Diagnoses Diagnosis Type 2 diabetes mellitus with diabetic neuropathy, without long-term current use of insulin ([facility]) documented in this encounter Additional Health Concerns Assessment Noted Time PHQ-9 Depression Total Score: 0 06/06/19 25 10:00 AM EST documented as of this encounter Care Teams Radiation Control Worker Relationship Specialty Start Date End Date Bandar Muñiz MD [address] [place] [address] PCP - General Family Medicine 05/29/23 documented as of this encounter
--- OUTSIDE RECORDS SUMMARY | 2024-09-20 12:46 | XMS_ITS | Encounter Summary ---
Author Organization [facility] Address [address] [place] [address] Care Team Providers Care Hard Metals Engraver Hand Name Role Phone Bandar Muñiz MD Primary Care Provider [phone] Encounter Details Date Type Department Care Team (Late st Contact Info) Description 09/09/2024 Abstract [facility] [address] [place] [address] Bandar Muñiz MD [address] [place] [address] Social History Tobacco Use Types Packs/Day Years [...] often do you attend chur ch or holiness services? Never 10/24/2022 Do you belong to any clubs o r organizations such as latter day groups, unions, fraternal or athletic groups, or [...] place to sleep or slept in a long-term (including now)? No 10/24/2022 Sex and Gender [...] MD [address] [place] [address] 10/15/2024 9:30 AM EDT Office Visit [facility] [address] [place] [address] Rukhsana Snow DO [address] [place], [place] [address] 12/05/2024 10:00 AM EDT [facility] [address] [place] [address] Bandar Muñiz MD [address] [place] [address] documented as of this encounter Visit Diagnoses Not on filedocumented in this encounter Additional Health Concerns Assessment Noted Time PHQ-9 Depression Total Score: 0 06/06/19 25 10:00 AM EST documented as of this encounter Care Teams Hard Metals Engraver Hand Relationship Specialty Start Date End Date Bandar Muñiz MD [address] [place] [address] PCP - General Family Medicine 05/29/23 documented as of this encounter
--- OUTSIDE RECORDS SUMMARY | 2024-09-20 12:46 | XMS_ITS | Encounter Summary ---
Author Organization [facility] Address [address] [place] [address] Care Team Providers Care Mouthpiece Maker Name Role Phone Bandar Muñiz MD Primary Care Provider [phone] Encounter Details Date Type Department Care Team (Late st Contact Info) Description 09/12/2024 [facility] [address] [place] [address] Rukhsana Snow, DO [address] [facility] [address] [place] [address] Social History Tobacco Use Types Packs/Day Years [...] often do you attend chur ch or sikh services? Never 10/24/2022 Do you belong to any clubs o r organizations such as holiness groups, unions, fraternal or athletic groups, or [...] place to sleep or slept in a usp (including now)? No 10/24/2022 Sex and Gender [...] [address] [place] [address] Janina Samaniego MD [address] [place], [place] [address] 10/15/2024 9:30 AM EDT Office Visit [facility] [address] [place] [address] Rukhsana Snow DO [address] [place], [place] [address] 12/05/2024 10:00 AM EDT Office Visit [facility] [address] [place] [address] Bandar Muñiz MD [address] [place] [address] documented as of this encounter Visit Diagnoses Not on filedocumented in this encounter Additional Health Concerns Assessment Noted Time PHQ-9 Depression Total Score: 0 06/06/19 25 10:00 AM EST documented as of this encounter Care Teams Mouthpiece Maker Relationship Specialty Start Date End Date Bandar Muñiz MD [address] [place] [address] PCP - General Family Medicine 05/29/23 documented as of this encounter
--- OUTSIDE RECORDS SUMMARY | 2024-09-20 12:46 | XMS_ITS | Clinical Summary ---
Author Organization [employer] [facility] tem Address [id number] [address] [place] [address] Care Team Providers Care Soybean Grower Name Role Phone Unavailable Primary Care Provider Unavailabl e Social History Tobacco Use Types Packs/Day Years Used Date Smoking Tobacco: Never Assessed Childcare Answer Date Recorded Childcare Unknown 10/11/2018 Employment Answer Date Recorded Employment Unknown 10/11/2018 Purpose - Life Answer Date Recorded Purpose and direction in life Unknown Sex and Gender Information Value Date Recorded Sex Assigned at Not on file Legal Sex Male 11:16 AM EDT Gender Identity Not on file Sexual Orientation Not on file Plan of Treatment Health Maintenance Due Date Last Done Comments Depression Screening 1965 Tobacco Screening 1965 Adult BMI Screening 1971 DTaP,Tdap and Td Vaccines (1 - Tdap) 02/07/1972 Zoster (Shingles) Vaccine (1 of 2) 2003 Fall Risk Screening 2018 Influenza Vaccine 12/30/2024 Medical Devices Not on file Insurance MEDICARE [facility]
--- OUTSIDE RECORDS SUMMARY | 2024-09-20 12:46 | XMS_ITS | Encounter Summary ---
Author Organization [facility] Address [address] [place] [address] Care Team Providers Care Cigar Head Puncher Name Role Phone Bandar Muñiz MD Primary Care Provider Bandar Muñiz MD Primary Care Provider [phone] Encounter Details Date Type Department Care Team (Late st Contact Info) Description 11/04/2022 Abstract [facility] [address] [facility] [address] [place] [address] Rukhsana Snow, [address] [facility] [address] [place] [address] Social History Tobacco Use Types Packs/Day Years [...] often do you attend chur ch or pentecostalism services? Never 10/24/2022 Do you belong to any clubs o r organizations such as adventist groups, unions, fraternal or athletic groups, or [...] place to sleep or slept in a group home (including now)? No 10/24/2022 Sex and [...] suspected to have Coronavirus/COVID-19? No / Unsure 10/24/2022 6:56 PM EDT documented as of this encounter Plan of Treatment Upcoming Encounters Date Type Department Care Team (Late st Contact Info) Description 09/24/2024 10:30 AM EDT Office Visit [facility] [address] [place] [address] Janina Samaniego MD [address] [place], [place] [address] 10/15/2024 9:30 AM EDT Office Visit [facility] [address] [place] [address] Rukhsana Snow DO [address] [place] [address] 12/05/2024 10:00 AM EDT Office Visit [facility] [address] [place] [address] Bandar Muñiz MD [address] [place] [address] documented as of this encounter Visit Diagnoses Not on filedocumented in this encounter Care Teams Cigar Head Puncher Relationship Specialty Start Date End Date Bandar Muñiz MD PCP - General Family Medicine 10/21/22 05/28/23 Bandar Muñiz MD [address] [place] [address] PCP - General Family Medicine 05/29/23 documented as of this encounter
--- OUTSIDE RECORDS SUMMARY | 2024-09-20 12:46 | XMS_ITS | Patient Health Record ---
Author Organization [facility] [place] Address [address] [place] [address] Care Team Providers Care Supervisor Aluminum Boat Assembly Name Role Phone Bandar Muñiz MD Primary Care Provider Unavailab le Allergies Allergen (clinical drug ingredient) Drug/Non Drug Allergy documented on EMR Reaction Allergy Type Onset Date Status Penicillin Unknown Drug Allergy Active Reason For Referral No Information Medications Medication SIG (Take, Route, Frequency, Duration) Notes Start Date End Date Status Lantus SoloStar Acti ve Gabapentin 600 MG 1 capsule Orally 3x daily Active Farxiga 10 MG 1/2 Orally Once a day Active Atorvastatin Calcium 40 MG 1 tablet Oral ly at bedtime Active Aspirin 81 Active Synjardy Active Ozempic Active metFORMIN HCl 500 MG 1 capsule Orally tw ice daily Active Lisinopril 20 MG 1 tablet Orally Once a day Active Social History Tobacco Use: Social History Observation Description Date Details (start date - stop date) Never Smoker NA - NA Tobacco Use/Smoking Question Answer Notes Patient is a nonsmoker Plan Of Treatment No Information Insurance Providers Payer Name Payer Address Payer Phone Subscriber Number Group Number Insured Name Patient Relationship to Insured Coverage Start Date Coverage End Date [employer] AD[employer]AN [address] [place] [address] [id number] Ortiz Barger Self - patient is the insured Medical (General) History Medical History History ICD Code Chronic kidney disease N18.9 degenerative lumbar spinal stenosis primary osteoarthritis of left elbow Charcot's joint left foot Type 2 Diabetes E11.9 Peripheral vascular disease I73.9 Surgical History Surgery Date(Month/Year) EVLT x2 09/2019 Back surgery 10/15/2018 Varithena/microfoam chemical ablation, l eft 11/06/2019 excisional debridement of ulcer of left foot 07/06/2020 carpal tunnel surgery, right 09/06/2018 LLE peripheral vascular angioplasty 2018 excision basal cell carcinoma 08/02/2018 Shoulder surgery 2004 Knee arthroscopy 1978 left triple arthrodesis, mid foot fusion with ostectomy, achilles tenotomy Dr. Maldonado 01/27/2020 left foot I&D to bone cortex with transpositional abductor digiti minimi muscle flap and application of ex fix, w/ subsequent removal Dr. Carroll 07/04/2019 Hospitalization History Reason Date(Month/Year) see above
--- OUTSIDE RECORDS SUMMARY | 2024-09-20 12:46 | XMS_ITS | Encounter Summary ---
Author Organization [facility] Address [address] [facility] [place] [address] Care Team Providers Care Creative/Art Director Name Role Phone Bandar Muñiz MD Primary Care Provider [phone] Bandar Muñiz MD Primary Care Provider [phone] Encounter Details Date Type Department Care Team (Late st Contact Info) Description 01/19/2023 Orders Only [facility] [address] [facility] [address] [place] [address] A, Unknown Practice [address] [place], [place] [address] Social History Tobacco Use Types Packs/Day Years [...] often do you attend chur ch or zoroastrianism services? Never 10/24/2022 Do you belong to [...] place to sleep or slept in a senior care (including now)? No 10/24/2022 Sex and Gender [...] MD [address] [place] [address] 10/15/2024 9:30 AM EDT Office Visit [facility] [address] [place] [address] Rukhsana Snow DO [address] [place], [place] [address] 12/05/2024 10:00 AM EDT Office Visit [facility] [address] [place] [address] Bandar Muñiz MD [address] [place] [address] documented as of this encounter Procedures Procedure Name Priority Date/Time Associated Diagnosis Comments SCANNED LABS Routine 01/19/2023 11:28 AM EDT SCANNED LABS Routine 01/19/2023 11:19 AM EDT documented in this encounter Results * SCANNED LABS (01/19/2023 11:28 AM EDT) us Unknown Practice A LAB CHG PERFORMABLES Final Re sult * SCANNED LABS (01/19/2023 11:19 AM EDT) us Unknown Practice A LAB CHG PERFORMABLES Final Re sult documented in this encounter Visit Diagnoses Not on filedocumented in this encounter Care Teams Creative/Art Director Relationship Specialty Start Date End Date Bandar Muñiz MD PCP - General Family Medicine 10/21/22 05/28/23 Bandar Muñiz MD [address] [place] [address] PCP - General Family Medicine 05/29/23 documented as of this encounter
[2024-09-20 13:11] LABS: Uric Acid 4.7 mg/dL (3.5-7.2)
== END 2024-09-20 12:42 | disposition home or self-care (01) ==
LOC: US 12:43
PROVIDERS: PCP Family Medicine; Visit Provider Family Medicine
DX: M79.604 Pain in right leg (principal); M79.89 Other specified soft tissue disorders; I73.9 Peripheral vascular disease, unspecified
CPT/HCPCS: 36415; 84550; 93926; 93971